=== PATIENT | male | born 1975 | race African-American/Black ===

== ENCOUNTER 2021-06-24 17:32 | Emergency (ER) | payer OTHER ==
[~2021-06-24] VITALS: Ht 170.2 cm; Wt 72.7 kg
[2021-06-24] MEDS ORDERED: IBUPROFEN 800 MG TABLET PO ONE (19:45)
[2021-06-24] MEDS ORDERED: BACITRACIN 0.9 GM PACKET OINTMENT TP ONE (19:45)
[2021-06-24 19:56] VITALS: BP 142/81
== END 2021-06-24 20:08 | disposition home or self-care (01) ==
LOC: EMS 17:32
DX: S68.113A Complete traumatic metacarpophalangeal amputation of left middle finger, initial encounter (principal); X58.XXXA Exposure to other specified factors, initial encounter; Y93.89 Activity, other specified; Y92.89 Other specified places as the place of occurrence of the external cause; Y99.8 Other external cause status
CPT/HCPCS: 99283

== ENCOUNTER 2022-01-08 08:00 | Emergency (ER) | payer OTHER ==
[~2022-01-08] VITALS: Ht 170.2 cm; Wt 68.2 kg
[2022-01-08 08:03] VITALS: BP 143/84
[2022-01-08] MEDS ORDERED: GABA-1216 PO (09:26)
[2022-01-08] MEDS ORDERED: ACETAMINOPHEN 325 MG TABLET PO ONE (09:30)
== END 2022-01-08 09:56 | disposition home or self-care (01) ==
LOC: EMS 08:13
DX: S68.123A Partial traumatic metacarpophalangeal amputation of left middle finger, initial encounter (principal); X58.XXXA Exposure to other specified factors, initial encounter; Y93.89 Activity, other specified; Y92.89 Other specified places as the place of occurrence of the external cause; Y99.8 Other external cause status
CPT/HCPCS: 99282; 99283